=== PATIENT | male | born 1935 | race Caucasian/White ===

== ENCOUNTER → 2019-02-23 | Outpatient (CLI) | payer OTHER ==
[~2019-02-23] MED LIST: ACETAMINOPHEN; ALEN70 PO; ASPI325 PO; ASPI81EC PO; ATOR80 PO; Bactrim Ds Tab1 EACH PO; CARV3.125 PO; CLOP75 PO; CYCL10; DIPH50; ESOM20; ESOM20 PO; GLUCHON; HYDSUL200 PO; Isosorbide Mono30 MG PO; KETO15TC; METO25ER PO; METR70GEL; METRIBP PO; MULTI-VITAMIN1 EACH PO; MULVITMINF; NITR.4SL SL; RISE35; VICODIN; [UNRECOGNIZED DRUG - MIXTURE]; [UNRECOGNIZED DRUG - OTHER]; [UNRECOGNIZED DRUG - OTHER]
== END | disposition home or self-care (01) ==
LOC: LAB SHORT 19:29 → LAB 19:29
DX: N39.0 Urinary tract infection, site not specified (principal)
CPT/HCPCS: 87077; 87086; 87186

== ENCOUNTER 2020-11-22 10:15 | Inpatient (IN) | payer OTHER ==
[~2020-11-22] VITALS: Ht 182.9 cm; Wt 95.2 kg
[2020-11-22 11:33] LABS: Hematocrit 33.2 % (37.0-53.0); Hemoglobin 11.3 g/dL (13.5-17.5); Mean Corpuscular HGB 32.1 pg (26.0-34.0); Mean Corpuscular Volume 94 fL (80-100); Mean Platelet Volume 11.2 fL (9.1-12.4); Platelet Count 100 K/mm3 (150-400); RDW Coefficient Variation 16.4 % (11.7-14.2); RDW Standard Deviation 56.7 fL (35.1-46.3); Red Blood Cell Count 3.52 M/mm3 (4.30-5.90)
[2020-11-22 11:54] LABS: Alanine Aminotransfer (ALT/SGP 107 U/L (12-78); Albumin, Blood 2.8 g/dL (3.4-5.0); Albumin/Globulin Ratio 0.6 (0.8-1.8); Alk Phos 325 U/L (50-136); Anion Gap 7 mmol/L (6-16); Aspartate Aminotrans (AST/SGOT 98 U/L (12-37); Blood Urea Nitrogen 23 mg/dL (8-24); Bun/Creatinine Ratio 20.4 (12.0-20.0); CO2, Blood 25 mmol/L (21-32); Calcium, Blood 8.6 mg/dL (8.5-10.1); Chloride, Blood 103 mmol/L (98-108); Creatinine, Blood 1.13 mg/dL (0.60-1.20); Glomerular Filtration Rate >60 (60-); Glucose, Blood 88 mg/dL (70-99); Potassium, Blood 3.6 mmol/L (3.5-5.5); Sodium, Blood 135 mmol/L (136-145); Total Protein, Blood 7.8 g/dL (6.4-8.2)
[2020-11-22 11:58] LABS: White Blood Cell Count 22.05 K/mm3 (4.00-11.30)
[2020-11-22 12:52] LABS: BAND PERCENT MAN 2 % (0-8); BASOPHILS PERCENT MAN 0 % (0-2); EOSINOPHILS PERCENT MAN 0 % (0-6); LYMPHOCYTES ABSOLUTE MAN 0.66 K/mm3 (0.84-5.20); LYMPHOCYTES PERCENT MAN 3 % (21-46); MONOCYTES ABSOLUTE MAN 1.98 K/mm3 (0.16-1.47); MONOCYTES PERCENT MAN 9 % (4-13); SEG NEUTROPHILS PERCENT MAN 86 % (41-73); TOTAL CELLS COUNTED 100
[2020-11-22 12:53] LABS: Source, Urine Catheter
[2020-11-22 12:57] LABS: Appearance, Urine Clear (Clear); Bilirubin, Urine Neg (Neg); Blood, Urine 3+ (Neg); Color, Urine Amber (P-Yellow); Glucose Qualitative, Urine Neg (Neg); Ketones, Urine Neg (Neg); Leukocyte Esterase, Urine 3+ (Neg); Nitrite, Urine Neg (Neg); Protein, Urine 2+ (Neg); Urobilinogen, Urine NORM (Normal); pH, Urine 6.5 (5.0-8.0)
[2020-11-22 13:06] LABS: Bacteria Mod /hpf; Squamous Epithelial Cells Mod /hpf (Few)
[2020-11-22] MEDS ORDERED: ATORVASTATIN CA20 MG PO (17:50)
[2020-11-22] MEDS ORDERED: CLONAZEPAM1 MG PO (17:50)
--- NOTE | 2020-11-22 22:33 | NUR ---
MRI screening form filled out over the phone by primary RN, Marcia Nascimento, with patient's , Marisel Gonzales. Witnessed by weigher and chargerCarlos.
[2020-11-22 23:19] LABS: SARS-Cov-2 (COVID-19) PCR, MMC NEGATIVE (NEGATIVE)
[2020-11-23 04:16] LABS: BASOPHILS ABSOLUTE AUTO 0.02 K/mm3 (0.00-0.23); BASOPHILS PERCENT AUTO 0 % (0-2); EOSINOPHILS ABSOLUTE AUTO 0.01 K/mm3 (0.00-0.68); EOSINOPHILS PERCENT AUTO 0 % (0-6); Hematocrit 31.8 % (37.0-53.0); Hemoglobin 10.6 g/dL (13.5-17.5); IMMATURE GRAN ABSOLUTE AUTO 0.05 K/mm3 (0.00-0.10); IMMATURE GRAN PERCENT AUTO 1 % (0-1); LYMPHOCYTES ABSOLUTE AUTO 0.84 K/mm3 (0.84-5.20); LYMPHOCYTES PERCENT AUTO 11 % (21-46); MONOCYTES ABSOLUTE AUTO 0.61 K/mm3 (0.16-1.47); MONOCYTES PERCENT AUTO 8 % (4-13); Mean Corpuscular HGB 31.6 pg (26.0-34.0); Mean Corpuscular HGB Conc 33.3 g/dL (31.5-36.5); Mean Corpuscular Volume 95 fL (80-100); NEUTROPHILS ABSOLUTE AUTO 6.47 K/mm3 (1.96-9.15); NEUTROPHILS PERCENT AUTO 81 % (41-73); Platelet Count 87 K/mm3 (150-400); RDW Coefficient Variation 16.5 % (11.7-14.2); RDW Standard Deviation 57.4 fL (35.1-46.3); Red Blood Cell Count 3.35 M/mm3 (4.30-5.90)
[2020-11-23 04:42] LABS: Alanine Aminotransfer (ALT/SGP 79 U/L (12-78); Albumin, Blood 2.4 g/dL (3.4-5.0); Albumin/Globulin Ratio 0.5 (0.8-1.8); Alk Phos 254 U/L (50-136); Anion Gap 6 mmol/L (6-16); Aspartate Aminotrans (AST/SGOT 65 U/L (12-37); Bilirubin, Total 2.6 mg/dL (0.1-1.0); Blood Urea Nitrogen 19 mg/dL (8-24); Bun/Creatinine Ratio 19.2 (12.0-20.0); CO2, Blood 24 mmol/L (21-32); Calcium, Blood 8.1 mg/dL (8.5-10.1); Chloride, Blood 109 mmol/L (98-108); Creatinine, Blood 0.99 mg/dL (0.60-1.20); Globulin, Blood 4.4 g/dL (2.2-4.0); Glomerular Filtration Rate >60 (60-); Glucose, Blood 86 mg/dL (70-99); Potassium, Blood 3.7 mmol/L (3.5-5.5); Sodium, Blood 139 mmol/L (136-145); Total Protein, Blood 6.8 g/dL (6.4-8.2)
--- NOTE | 2020-11-23 06:28 | NUR ---
ARRIVED TO UNIT NEW ADMISSION AT 2029. VSS. NO COMPLAINTS OF PAIN UNTIL 539. MEDICATED APPROPRIATELY, SEE EMAR. PT SELF CATHED W/ NO ISSUES. A/OX4, FORGETFUL. +ANIAK. PT STATES HE WOULD FEEL MORE COMFORTABLE WITH HIS INVOLVED IN DECISION MAKING WITH HIM. NO NOTEWORTHY EVENTS.
--- NOTE | 2020-11-23 13:29 | NUR ---
PATIENT PICKED UP BY TRANSPORT TEAM AT APPROX 1320. ALL BELONGINGS TAKEN WITH PATIENT. IV IN PLACE WITH DISCHARGE. PT STOOD AND TRANSFERED INDEPENDENTLY TO [facility]. CALLED TO GIVE REPORT TO RECEIVING RN, NO ANSWER, WILL TRY AGAIN SOON.
--- NOTE | 2020-11-23 14:05 | NUR ---
CALLED AND GAVE REPORT TO JERI AT [facility]. INFORMED HER OF PATIENTS MEDICAL HISTORY AND REPORTED THAT PT HAD A PATENT IV IN HIS R AC. LET RN KNOW THAT PT SELF CATHS AND HE HAS CHRONIC UTI. BELOGINGS TAKEN WITH PT ON TRANSPORT.
--- NOTE | 2020-11-23 14:33 | NUR ---
POSITIVE BLOOD CULTURE RESULT CALLED TO JERI AT [facility]
== END 2020-11-23 13:40 | disposition home or self-care (01) | DRG 445 ==
LOC: ER 10:15 → MEDS 18:11 → SURS 18:11
PROVIDERS: Student in an Organized Health Care Education/Training Program; ADMIT Internal Medicine
DX: K80.32 Calculus of bile duct with acute cholangitis without obstruction (principal); N39.0 Urinary tract infection, site not specified; B95.2 Enterococcus as the cause of diseases classified elsewhere; I10 Essential (primary) hypertension; I71.4 Abdominal aortic aneurysm, without rupture; I25.10 Atherosclerotic heart disease of native coronary artery without angina pectoris; Z95.5 Presence of coronary angioplasty implant and graft; K21.9 Gastro-esophageal reflux disease without esophagitis; Z20.822 Contact with and (suspected) exposure to COVID-19; Z88.1 Allergy status to other antibiotic agents; L40.9 Psoriasis, unspecified; Z08 Encounter for follow-up examination after completed treatment for malignant neoplasm; Z85.828 Personal history of other malignant neoplasm of skin; N40.1 Benign prostatic hyperplasia with lower urinary tract symptoms; E78.5 Hyperlipidemia, unspecified; Z79.899 Other long term (current) drug therapy; G25.81 Restless legs syndrome; Z91.018 Allergy to other foods
CPT/HCPCS: 36415; 74177; 74181; 80053; 81001; 83690; 85025; 87040; 87077; 87086; 87186; 96365-59; 96366; 96375; 99285-25; A9270; C9113; J0295; J0696; J1170; J1650; J1885; J2270; J2405; J7030; J7042; J7120; Q9967; U0004

== ENCOUNTER → 2020-12-06 | Outpatient (CLI) | payer OTHER ==
[~2020-12-06] MED LIST changes: +ATORVASTATIN CA20 MG PO; +CLONAZEPAM1 MG PO
[2020-12-06 19:55] LABS: Alanine Aminotransfer (ALT/SGP 27 U/L (12-78); Albumin, Blood 3.2 g/dL (3.4-5.0); Albumin/Globulin Ratio 0.6 (0.8-1.8); Alk Phos 171 U/L (50-136); Anion Gap 4 mmol/L (6-16); Aspartate Aminotrans (AST/SGOT 25 U/L (12-37); Bilirubin, Total 0.9 mg/dL (0.1-1.0); Blood Urea Nitrogen 12 mg/dL (8-24); Bun/Creatinine Ratio 14.9 (12.0-20.0); CO2, Blood 28 mmol/L (21-32); Calcium, Blood 9.1 mg/dL (8.5-10.1); Chloride, Blood 106 mmol/L (98-108); Creatinine, Blood 0.81 mg/dL (0.60-1.20); Globulin, Blood 5.3 g/dL (2.2-4.0); Glomerular Filtration Rate >60 (60-); Glucose, Blood 102 mg/dL (70-99); Potassium, Blood 3.9 mmol/L (3.5-5.5); Sodium, Blood 138 mmol/L (136-145); Total Protein, Blood 8.5 g/dL (6.4-8.2)
== END | disposition home or self-care (01) ==
LOC: LAB SHORT 15:25
PROVIDERS: Family Medicine
DX: I50.9 Heart failure, unspecified (principal)
CPT/HCPCS: 80053; 83880

== ENCOUNTER → 2021-03-07 | Outpatient (CLI) | payer OTHER | LOC: LAB SHORT 14:56 | DX: L98.9 Disorder of the skin and subcutaneous tissue, unspecified (principal) | CPT/HCPCS: 88305 ==